=== PATIENT | female | born 1965 | race Caucasian/White ===

== ENCOUNTER 2022-01-15 13:06 | Emergency (ER) | payer SELFPAY ==
[~2022-01-15] VITALS: Ht 157.5 cm; Wt 99.8 kg
[2022-01-15 16:04] LABS: Source, Urine Clean Catch
[2022-01-15 16:11] LABS: Bilirubin, Urine Neg (Neg); Blood, Urine Neg (Neg); Glucose Qualitative, Urine Neg (Neg); Ketones, Urine Neg (Neg); Leukocyte Esterase, Urine 1+ (Neg); Nitrite, Urine Neg (Neg); Protein, Urine 2+ (Neg); Urobilinogen, Urine NORM (Normal)
[2022-01-15 16:22] LABS: Appearance, Urine Hazy (Clear); Color, Urine Yellow (P-Yellow)
[2022-01-15 16:23] LABS: Mucus Mod (0-Heavy)
[2022-01-15 16:24] LABS: Bacteria Mod /hpf; Red Blood Cells, Urine 0-2 /hpf (0-2); Squamous Epithelial Cells Mod /hpf (Few)
[2022-01-15] MEDS ORDERED: LIDO700A20 TOP (17:26)
[2022-01-15] MEDS ORDERED: CEPH500 PO (17:26)
== END 2022-01-15 17:40 | disposition home or self-care (01) ==
LOC: ER 13:06
PROVIDERS: Student in an Organized Health Care Education/Training Program
DX: M54.50 Low back pain, unspecified (principal); N39.0 Urinary tract infection, site not specified; M25.562 Pain in left knee; W01.198A Fall on same level from slipping, tripping and stumbling with subsequent striking against other object, initial encounter
CPT/HCPCS: 72100; 72170; 73502; 81001; A9270; J1885

== ENCOUNTER → 2022-02-19 | Outpatient (CLI) | payer OTHER ==
[~2022-02-19] MED LIST: CEPH500 PO; LIDO700A20 TOP
[2022-02-19 11:45] LABS: BASOPHILS ABSOLUTE AUTO 0.03 K/mm3 (0.00-0.23); BASOPHILS PERCENT AUTO 1 % (0-2); EOSINOPHILS ABSOLUTE AUTO 0.45 K/mm3 (0.00-0.68); EOSINOPHILS PERCENT AUTO 8 % (0-6); Hemoglobin 12.9 g/dL (11.5-16.0); IMMATURE GRAN ABSOLUTE AUTO 0.02 K/mm3 (0.00-0.10); IMMATURE GRAN PERCENT AUTO 0 % (0-1); LYMPHOCYTES ABSOLUTE AUTO 1.16 K/mm3 (0.84-5.20); LYMPHOCYTES PERCENT AUTO 21 % (21-46); MONOCYTES ABSOLUTE AUTO 0.34 K/mm3 (0.16-1.47); MONOCYTES PERCENT AUTO 6 % (4-13); Mean Corpuscular HGB 26.4 pg (26.0-34.0); Mean Corpuscular HGB Conc 32.3 g/dL (31.5-36.5); Mean Corpuscular Volume 82 fL (80-100); Mean Platelet Volume 9.3 fL (9.1-12.4); NEUTROPHILS ABSOLUTE AUTO 3.41 K/mm3 (1.96-9.15); NEUTROPHILS PERCENT AUTO 63 % (41-73); Platelet Count 192 K/mm3 (150-400); RDW Coefficient Variation 15.9 % (11.7-14.2); RDW Standard Deviation 47.8 fL (35.1-46.3); Red Blood Cell Count 4.88 M/mm3 (3.80-5.20); White Blood Cell Count 5.41 K/mm3 (4.00-11.30)
[2022-02-19 12:05] LABS: Albumin, Blood 3.6 g/dL (3.4-5.0); Albumin/Globulin Ratio 0.9 (0.8-1.8); Bilirubin, Total 0.5 mg/dL (0.1-1.0); Bun/Creatinine Ratio 22.7 (12.0-20.0); Calcium, Blood 8.7 mg/dL (8.5-10.1); Creatinine, Blood 0.75 mg/dL (0.40-1.00); Globulin, Blood 3.8 g/dL (2.2-4.0); Potassium, Blood 4.4 mmol/L (3.5-5.5); Thyroid Stimulating Hormone 0.992 uIU/mL (0.360-4.800); Total Protein, Blood 7.4 g/dL (6.4-8.2)
== END | disposition home or self-care (01) ==
LOC: LAB SHORT 11:40 → LAB 11:40
PROVIDERS: General Practice
DX: R03.0 Elevated blood-pressure reading, without diagnosis of hypertension (principal); R53.81 Other malaise
CPT/HCPCS: 80053; 84443; 85025; 86803